=== PATIENT | female | born 1990 | race African-American/Black ===

== ENCOUNTER 2016-11-18 15:17 | Emergency (ER) | payer SELFPAY ==
[~2016-11-18 15:17] MED LIST: AMOX875T PO; FLUT1SPR9 EACH NARE; METO10TA PO; ONDA4TAB7 PO; PANT20 PO; TRAM50 PO; ULTR50TA PO
[2016-11-18 15:20] VITALS: BP 125/78; PULSE 73; RESP 17; TEMP 98.1; O2SAT 99
[2016-11-18 16:58] LABS: BLOOD, URINE MOD (NEG); COMMENT (UR) CULT NOT INDICATED; CULTURE IF INDICATED CULT NOT INDICATED; GLUCOSE,URINE NEG (NEG); KETONE, URINE NEG (NEG); MUCUS URINE FEW /lpf (OCC); NITRITE,URINE NEG (NEG); SQUAMOUS EPITHELIAL CELL URINE 3 /hpf (0-5); URINE COLOR YELLOW (YELLW/STRAW)
[2016-11-18] MEDS ORDERED: SODIUM CHLOR 0.9% 1000 ML INJ 1,000 ML IV SCH (17:21)
[2016-11-18 17:27] VITALS: RESP 16; O2SAT 98
--- NOTE | 2016-11-18 17:28 | PD ---
HPI Chief Complaint: GI Complaint Time Seen by Provider: 17:09 Travel History International Travel<30 days: No Contact w/Intl Traveler<30days: No Traveled to known affect area: No History of Present Illness HPI 26-year-old female complains of abdominal pain with nausea vomiting. Patient states that symptoms started last night. Patient states that she has to with no fever. Patient states that she has sweating. Patient states the abdominal pain is cramping pain diffuse over the abdomen. Patient denies any pain radiation. Patient states that she started her menstruation period last night also. Patient denies any dysuria or frequency. Patient denies any back pain. On a scale from 1-10 the pain is an 8. 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") Social History Alcohol Use: Yes (occasionally) Tobacco Use: Yes Substance Use: No Allergies-Medications (Allergen,Severity, Reaction): Coded Allergies: Oxycodone (Verified Allergy, Severe, Hives, 11/18/16) Reported Meds & Prescriptions Reported Meds & Active Scripts Active Reglan 10 mg (Metoclopramide HCl) 10 Mg Tab 1 Tab PO Q6H Protonix (Pantoprazole Sodium) 20 Mg Tabdr 20 Mg PO DAILY Ultram (Tramadol HCl) 50 Mg Tab 50 Mg PO Q6H PRN FOR PAIN Flonase Allergy Relief (Fluticasone Propionate (Nasal)) 50 Mcg/Act Spr 2 [place] EACH NARE DAILY Trimox 875 Mg Tab (Amoxicillin) 875 Mg Tab 875 Mg PO Q12 Reported Ultram (Tramadol HCl) 50 Mg Tab 50 Mg PO BID PRN Ondansetron Odt (Ondansetron HCl) 4 Mg Tab 4 Mg PO BID Review of Systems General / Constitutional: No: Fever Eyes: No: Visual changes HENT: No: Headaches Cardiovascular: No: Chest Pain or Discomfort Respiratory: No: Shortness of Breath Gastrointestinal: Positive: Nausea, Vomiting, Abdominal Pain Genitourinary: No: Dysuria Musculoskeletal: No: Pain Skin: No Rash Neurologic: No: Weakness Psychiatric: No: Depression Endocrine: No: Polydipsia Hematologic/Lymphatic: No: Easy Bruising Physical Exam Narrative GENERAL: Well-nourished, well-developed patient. SKIN: Warm and dry. HEAD: Normocephalic. EYES: No scleral icterus. No injection or drainage. NECK: Supple, trachea midline. No JVD or lymphadenopathy. CARDIOVASCULAR: Regular rate and rhythm without murmurs, gallops, or rubs. RESPIRATORY: Breath sounds equal bilaterally. No accessory muscle use. GASTROINTESTINAL: Abdomen soft, nondistended. Patient has moderate diffuse tenderness over the abdomen. No rebound tenderness. No mass. MUSCULOSKELETAL: No cyanosis, or edema. BACK: Nontender without obvious deformity. No CVA tenderness. Neurologic exam normal. Data Data Last Documented VS Vital Signs Date Time Temp Pulse Resp B/P Pulse Ox O2 Delivery O2 Flow Rate FiO2 11/18/16 19:17 69 18 123/60 95 Room Air 11/18/16 15:20 98.1 Orders Urinalysis - C+S If Indicated (11/18/16 16:39) Ed Urine Pregnancytest Poc (11/18/16 16:39) Complete Blood Count With Diff (11/18/16 17:21) Comprehensive Metabolic Panel (11/18/16 17:21) Lipase (11/18/16 17:21) Prothrombin Time / Inr (Pt) (11/18/16 17:21) Act Partial Throm Time (Ptt) (11/18/16 17:21) Iv Access Insert/Monitor (11/18/16 17:21) Ecg Monitoring (11/18/16 17:21) Oximetry (11/18/16 17:21) Ondansetron Inj (Zofran Inj) (11/18/16 17:30) Pantoprazole Inj (Protonix Inj) (11/18/16 17:30) Sodium Chlor 0.9% 1000 Ml Inj (Ns 1000 M (11/18/16 17:21) Ketorolac Inj (Toradol Inj) (11/18/16 17:30) Metoclopramide Inj (Reglan Inj) (11/18/16 19:45) Diphenhydramine Inj (Benadryl Inj) (11/18/16 19:45) Labs Laboratory Tests Test 11/18/16 11/18/16 16:42 17:30 Urine Color YELLOW Urine Turbidity CLEAR Urine pH 6.0 Urine Specific [place] 1.023 Urine Protein TRACE mg/dL Urine Glucose (UA) NEG mg/dL Urine Ketones NEG mg/dL Urine Occult Blood MOD Urine Nitrite NEG Urine Bilirubin NEG Urine Urobilinogen 2.0 MG/DL Urine Leukocyte Esterase NEG Urine RBC /hpf Urine WBC 3 /hpf Urine Squamous Epithelial 3 /hpf Cells Urine Mucus FEW /lpf Microscopic Urinalysis Comment CULT NOT INDICATED White Blood Count 5.2 TH/MM3 Red Blood Count 4.46 MIL/MM3 Hemoglobin 11.6 GM/DL Hematocrit 36.8 % Mean Corpuscular Volume 82.6 FL Mean Corpuscular Hemoglobin 26.1 PG Mean Corpuscular Hemoglobin 31.7 % Concent Red Cell Distribution Width 14.3 % Platelet Count 163 TH/MM3 Mean Platelet Volume 8.6 FL Neutrophils (%) (Auto) 64.8 % Lymphocytes (%) (Auto) 28.1 % Monocytes (%) (Auto) 4.3 % Eosinophils (%) (Auto) 0.4 % Basophils (%) (Auto) 2.4 % Neutrophils # (Auto) 3.4 TH/MM3 Lymphocytes # (Auto) 1.5 TH/MM3 Monocytes # (Auto) 0.2 TH/MM3 Eosinophils # (Auto) 0.0 TH/MM3 Basophils # (Auto) 0.1 TH/MM3 CBC Comment DIFF FINAL Differential Comment Sodium Level 138 MEQ/L Potassium Level 5.1 MEQ/L Chloride Level 106 MEQ/L Carbon Dioxide Level 25.3 MEQ/L Anion Gap 7 MEQ/L Blood Urea Nitrogen 7 MG/DL Creatinine 0.91 MG/DL Estimat Glomerular Filtration 90 ML/MIN Rate Random Glucose 75 MG/DL Calcium Level 9.1 MG/DL Total Bilirubin 0.8 MG/DL Aspartate Amino Transf 27 U/L (AST/SGOT) Alanine Aminotransferase 19 U/L (ALT/SGPT) Alkaline Phosphatase 60 U/L Total Protein 8.4 GM/DL Albumin 4.2 GM/DL Lipase 399 U/L [facility] Medical Decision Making Medical Screen Exam Complete: Yes Emergency Medical Condition: Yes Interpretation(s) Urine test negative. 194 PM. CBC within normal limit. CMP within normal limit. Lipase 399. UA is negative. Differential Diagnosis Differential diagnosis including dysmenorrhea, gastritis, PUD, pancreatitis, cholecystitis, colitis, UTI, pyelonephritis, nephrolithiasis, gastroenteritis. Narrative Course 26-year-old female with complains of nausea vomiting abdominal pain. Patient's on her menstruation period now. Normal saline solution 1 L IV bolus. Toradol 30 mg IV. Zofran 4 mg IV. Reglan 10 mg IV. Benadryl 25 mg IV. Reexamination abdominal pain resolved completely. Patient complained of persistent nausea. Diagnosis Primary Impression: Dysmenorrhea Additional Impression: Gastroenteritis Patient Instructions: General Instructions Additional Instructions: Take medication as needed. Follow-up with personal physician. Return if persistent problem or worse. Med/Other Pt SpecificInfo: Prescription(s) given Scripts Tramadol 50 Mg Tab50 Mg PO Q6H PRN (PAIN) #20 TAB Ref 0 Prov:Aguilar Velasquez MD 11/18/16 Promethazine (Phenergan)25 Mg Tab25 Mg PO Q6H PRN (Nausea/Vomiting) #10 TAB Ref 0 Prov:Aguilar Velasquez MD 11/18/16 Ondansetron Odt (Zofran Odt)4 Mg Tab4 Mg SL Q6HR PRN (Nausea/Vomiting) #10 TAB Prov:Aguilar Velasquez MD 11/18/16 Disposition: 01 DISCHARGE HOME Condition: Stable Aguilar Velasquez MD Nov 18, 2016 17:28
[2016-11-18] MEDS ORDERED: PANTOPRAZOLE SODIUM 40 MG VIAL IVP ONE (17:30)
[2016-11-18] MEDS ORDERED: ONDANSETRON HCL 4 MG/2 ML VIAL IVP ONE (17:30)
[2016-11-18] MEDS ORDERED: KETOROLAC TROMETHAMINE 30 MG/ML (IVP) VIAL IVP ONE (17:30)
[2016-11-18 17:51] LABS: AUTOMATED NEUTROPHIL # 3.4 TH/MM3 (1.8-7.7); BASOPHIL # 0.1 TH/MM3 (0-0.2); BASOPHIL % 2.4 % (0.0-2.0); EOSINOPHIL % 0.4 % (0.0-4.0); HEMATOCRIT 36.8 % (35.0-46.0); HEMO FLAGS DIFF FINAL; LYMPH % 28.1 % (9.0-44.0); LYMPHOCYTE # 1.5 TH/MM3 (1.0-4.8); MEAN CELL VOLUME 82.6 FL (80.0-100.0); MEAN CORPUSCULAR HEMOGLOBIN 26.1 PG (27.0-34.0); MEAN CORPUSCULAR HGB CONC 31.7 % (32.0-36.0); MONO % 4.3 % (0.0-8.0); NEUT % 64.8 % (16.0-70.0); PLATELET COUNT 163 TH/MM3 (150-450); RED BLOOD COUNT 4.46 MIL/MM3 (4.00-5.30); RED CELL DISTRIBUTION WIDTH 14.3 % (11.6-17.2); WHITE BLOOD COUNT 5.2 TH/MM3 (4.0-11.0)
[2016-11-18 18:00] VITALS: BP 122/60; PULSE 67; RESP 18; O2SAT 99
[2016-11-18 18:50] LABS: ALKALINE PHOSPHATASE 60 U/L (45-117); ALT (GPT) 19 U/L (10-53); ANION GAP 7 MEQ/L (5-15); AST (GOT) 27 U/L (15-37); BICARBONATE 25.3 MEQ/L (21.0-32.0); BLOOD UREA NITROGEN 7 MG/DL (7-18); CHLORIDE 106 MEQ/L (98-107); GLOMERULAR FILTRATION RATE 90 ML/MIN (>89); SODIUM (NA) 138 MEQ/L (136-145); TOTAL BILIRUBIN ADULT 0.8 MG/DL (0.2-1.0)
[2016-11-18 18:52] LABS: POTASSIUM 5.1 MEQ/L (3.5-5.1)
[2016-11-18 19:17] VITALS: BP 123/60; PULSE 69; RESP 18; O2SAT 95
[2016-11-18] MEDS ORDERED: diphenhydrAMINE HCL 50 MG/ML VIAL IV PUSH ONE (19:45)
[2016-11-18] MEDS ORDERED: METOCLOPRAMIDE HCL 10 MG/2 ML VIAL IV PUSH ONE (19:45)
[2016-11-18] MEDS ORDERED: TRAM50TA PO (19:56)
[2016-11-18] MEDS ORDERED: ZOFR4TAB3 SL (19:56)
[2016-11-18] MEDS ORDERED: PROM25TA5 PO (19:56)
== END 2016-11-18 20:23 | disposition home or self-care (01) ==
LOC: NEPA 15:17
DX: N94.6 Dysmenorrhea, unspecified (principal); K52.9 Noninfective gastroenteritis and colitis, unspecified; Z72.0 Tobacco use
CPT/HCPCS: 80053; 81001; 83690; 84703; 85025; 96360; 96374; 96375; 99284; C9113; J1200; J1885; J2405; J2765; J7030

== ENCOUNTER 2017-04-26 09:11 | Emergency (ER) | payer SELFPAY ==
[~2017-04-26] VITALS: Ht 175.3 cm; Wt 69.0 kg
[~2017-04-26 09:11] MED LIST changes: +PROM25TA5 PO; +TRAM50TA PO; +ZOFR4TAB3 SL
[2017-04-26 09:13] VITALS: BP 120/72; PULSE 71; RESP 12; TEMP 98.7; O2SAT 100
--- NOTE | 2017-04-26 09:34 | PD ---
HPI Chief Complaint: Oral / Dental Pain or Problem Time Seen by Provider: 09:27 Travel History International Travel<30 days: No Contact w/Intl Traveler<30days: No Traveled to known affect area: No History of Present Illness HPI 26-year-old Afro-[place]ian female presents the emergency department with several day history of and swelling in the right upper jaw line into the cheek for the past several days. Patient states some swelling this morning and increasing pain. She denies difficulty swallowing or throat pain. She denies fever, chills, or any other constitutional symptoms. Pain is rated as an 8 out of 10. Patient has no local dentist. She is allergic to oxycodone. 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") Social History Alcohol Use: Yes (occasionally) Tobacco Use: Yes Substance Use: No Allergies-Medications (Allergen,Severity, Reaction): Coded Allergies: Oxycodone (Verified Allergy, Severe, Hives, 04/26/17) Reported Meds & Prescriptions Reported Meds & Active Scripts Active Magic Mouthwash Adult Liq (Multi-Ingredient Mouthwash/Gargle) 120 Ml Susp 5 Ml SWISH-SWAL ACHS Each 5 mL contains: Nystatin 200,000 units, Diphenhydramine 4.25 mg, Viscous Lidocaine 10 mg, Vásquez syrup 0.8 mL Ibuprofen 800 Mg Tab 800 Mg PO Q8H PRN Amoxicillin 875 Mg Tab 875 Mg PO BID Non-Aspirin Pain Relief ES (Acetaminophen) 500 Mg Tab 500 Mg PO Q6HR PRN Trimox 875 Mg Tab (Amoxicillin) 875 Mg Tab 875 Mg PO Q12 Review of Systems Except as stated in HPI: all other systems reviewed are Neg General / Constitutional: No: Fever, Chills Eyes: No: Visual changes HENT: Positive: Dental Difficulties, Earache, No: Headaches, Sore Throat, Rhinitis, Rhinorrhea, Congestion, Neck Stiffness, Neck Pain, Gingival Bleeding Cardiovascular: No: Chest Pain or Discomfort Respiratory: No: Shortness of Breath Gastrointestinal: No: Abdominal Pain Genitourinary: No: Dysuria Musculoskeletal: No: Pain Skin: No Rash Neurologic: No: Weakness Psychiatric: No: Depression Endocrine: No: Polydipsia Hematologic/Lymphatic: No: Easy Bruising Physical Exam Narrative GENERAL: Patient is in mild to moderate distress. SKIN: Warm and dry. Normal color. Normal turgor. No rash. HEAD: Atraumatic. Normocephalic. EYES: Pupils equal and round. No scleral icterus. No injection or drainage. Ocular motions are equal bilaterally without pain. ENT: No nasal bleeding or discharge. Mucous membranes pink and moist. Teeth actually appeared fairly good repair. Patient points to the #4 tooth, which is noted to be tender with palpation. She has localized swelling to the upper gingiva without significant abscess appreciated. TMs are clear bilaterally. NECK: Trachea midline. Supple nontender without significant lymphadenopathy. CARDIOVASCULAR: Regular rate and rhythm. RESPIRATORY: No accessory muscle use. Clear to auscultation. Breath sounds equal bilaterally. MUSCULOSKELETAL: Extremities without clubbing, cyanosis, or edema. No obvious deformities. NEUROLOGICAL: Awake and alert. No obvious cranial nerve deficits. Motor grossly within normal limits. Five out of 5 muscle strength in the arms and legs. Normal speech. PSYCHIATRIC: Appropriate mood and affect; insight and judgment normal. Data Data Last Documented VS Vital Signs Date Time Temp Pulse Resp B/P Pulse Ox O2 Delivery O2 Flow Rate FiO2 04/26/17 09:13 98.7 71 12 120/72 100 MDM Medical Decision Making Medical Screen Exam Complete: Yes Emergency Medical Condition: Yes Differential Diagnosis Dental caries. Dental pain. Dental abscess. Narrative Course Patient is medically stable at time of exam. Patient was offered Toradol but declined. Patient was treated with amoxicillin 875 twice a day 10 days. Patient is given ibuprofen 800 mg 3 times daily with food #30. Patient is given acetaminophen 500 mg 2 tabs every 6 hours when necessary #60. Patient is given Magic mouthwash 5-10 mL's every 2 hours when necessary dental pain. #120 mL's with 1 refill. Dental resource handout is given patient. Patient follow-up if symptoms worsen as discussed. Diagnosis Primary Impression: Dental abscess Referrals: Dentist Patient Instructions: Dental Abscess (ED), General Instructions Departure Forms: Work Release Enter return to work date: Apr 28, 2017 Additional Instructions: Patient was treated with amoxicillin 875 twice a day 10 days. Patient is given ibuprofen 800 mg 3 times daily with food #30. Patient is given acetaminophen 500 mg 2 tabs every 6 hours when necessary #60. Patient is given Magic mouthwash 5-10 mL's every 2 hours when necessary dental pain. #120 mL's with 1 refill. Dental resource handout is given patient. Patient follow-up if symptoms worsen as discussed. Med/Other Pt SpecificInfo: Prescription(s) given Scripts Tbvgmcte-Dqifxmndkuynjif-Jyvhtavxt Liq (Magic Mouthwash Adult Liq)120 Ml Susp5 Ml SWISH-SWAL ACHS #120 ML Ref 1 Each 5 mL contains: Nystatin 200,000 units, Diphenhydramine 4.25 mg, Viscous Lidocaine 10 mg, Vásquez syrup 0.8 mL Prov:Ezio Galaviz MD 04/26/17 Ibuprofen 800 Mg [id number] Mg PO Q8H PRN (Pain/Inflammation) #30 TAB Prov:Ezio Galaviz MD 04/26/17 Amoxicillin 875 Mg [id number] Mg PO BID #20 TAB Prov:Ezio Galaviz MD 04/26/17 Acetaminophen (Non-Aspirin Pain Relief ES)500 Mg [id number] Mg PO Q6HR PRN (PAIN) # 60 TAB Prov:Ezio Galaviz MD 04/26/17 Disposition: 01 DISCHARGE HOME Condition: Stable Corky Mancilla Apr 26, 2017 09:34
[2017-04-26] MEDS ORDERED: AMOX875T PO (09:37)
[2017-04-26] MEDS ORDERED: IBUP800T23 PO (09:37)
[2017-04-26] MEDS ORDERED: MAGICADU2 SWISH-SWAL (09:37)
[2017-04-26] MEDS ORDERED: NON-500T13 PO (09:37)
== END 2017-04-26 10:36 | disposition home or self-care (01) ==
LOC: NEPK 09:11
DX: K04.7 Periapical abscess without sinus (principal); Z72.0 Tobacco use
CPT/HCPCS: 99284

== ENCOUNTER 2017-07-02 13:11 | Emergency (ER) | payer SELFPAY ==
[~2017-07-02 13:11] MED LIST changes: -FLUT1SPR9 EACH NARE; +IBUP800T23 PO; +MAGICADU2 SWISH-SWAL; -METO10TA PO; +NON-500T13 PO; -ONDA4TAB7 PO; -PANT20 PO; -PROM25TA5 PO; -TRAM50 PO; -TRAM50TA PO; -ULTR50TA PO; -ZOFR4TAB3 SL
[2017-07-02 13:14] VITALS: BP 136/62; PULSE 91; RESP 16; TEMP 98.1; O2SAT 100
[2017-07-02] MEDS ORDERED: BACT800T5 PO (13:40)
[2017-07-02] MEDS ORDERED: TYLETAB34 PO (13:40)
[2017-07-02] MEDS ORDERED: CLIN1CAP5 PO (13:40)
--- NOTE | 2017-07-02 13:43 | PD ---
HPI Chief Complaint: Skin Problem Time Seen by Provider: 13:22 Travel History International Travel<30 days: No Contact w/Intl Traveler<30days: No Traveled to known affect area: No History of Present Illness HPI The patient was seen and examined in the presence of the nurse. This patient complains of painful genital lesion. Duration 2 days. Severity is moderate. No fever or active drainage. 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") Social History Alcohol Use: Yes (occasionally) Tobacco Use: Yes Substance Use: No Allergies-Medications (Allergen,Severity, Reaction): Coded Allergies: oxycodone (Unverified Allergy, Severe, Hives, 06/19/17) Reported Meds & Prescriptions Reported Meds & Active Scripts Active Clindamycin (Clindamycin HCl) 150 Mg Cap 300 Mg PO Q8HR Bactrim DS (Sulfamethoxazole-Trimethoprim) 800-160 Mg Tab 1 Tab PO BID Tylenol-Codeine #3 (Acetaminophen-Codeine) 300-30 mg Tab 1 Tab PO Q4H PRN Magic Mouthwash Adult Liq (Multi-Ingredient Mouthwash/Gargle) 120 Ml Susp 5 Ml SWISH-SWAL ACHS Each 5 mL contains: Nystatin 200,000 units, Diphenhydramine 4.25 mg, Viscous Lidocaine 10 mg, Vásquez syrup 0.8 mL Ibuprofen 800 Mg Tab 800 Mg PO Q8H PRN Amoxicillin 875 Mg Tab 875 Mg PO BID Non-Aspirin Pain Relief ES (Acetaminophen) 500 Mg Tab 500 Mg PO Q6HR PRN Trimox 875 Mg Tab (Amoxicillin) 875 Mg Tab 875 Mg PO Q12 Review of Systems General / Constitutional: No: Fever HENT: No: Headaches Cardiovascular: No: Chest Pain or Discomfort Physical Exam Narrative GASTROINTESTINAL: Abdomen soft, non-tender, nondistended. Positive bowel sounds. No hepato-splenomegaly, or palpable masses. No guarding. Psych: Normal mood and affect. Normal insight and judgment. : She has some tenderness and swelling and a bit of induration in the left lower labia. There is no fluctuance or drainage. It looks like an early Bartholin's cyst infection Data Data Last Documented VS Vital Signs Date Time Temp Pulse Resp B/P (MAP) Pulse Ox O2 Delivery O2 Flow Rate FiO2 07/02/17 13:14 98.1 91 16 136/62 (86) 100 MDM Medical Decision Making Medical Screen Exam Complete: Yes Emergency Medical Condition: Yes Medical Record Reviewed: Yes Differential Diagnosis Bartholin's cyst infection, vaginitis, cellulitis Narrative Course I have reviewed the patient's electronic medical record. Patient has an early Bartholin's cyst infection of the left lower labia. However I don't feel it's amenable to incision and drainage at this time. There is no fluctuance. I advised her on warm compresses and wrote her something for pain as well as Bactrim and clindamycin Advised her to diligently do the antibiotics for 48 hours and if she has no improvement or worsens to return for recheck Diagnosis Primary Impression: Infected cyst of Bartholin's gland duct Additional Instructions: The patient was advised to follow up with their physician and return if they worsen. The patient was warned about potential sedation for the medications they will receive on prescription. Use warm compresses Med/Other Pt SpecificInfo: Prescription(s) given Scripts Clindamycin (Clindamycin) 150 Mg Cap 300 MG PO Q8HR for Infection, #42 CAP 0 Refills Prov: Arron Anna MD 07/02/17 Sulfamethoxazole-Trimethoprim (Bactrim DS) 800-160 Mg Tab 1 TAB PO BID for Infection, #14 TAB 0 Refills Prov: Arron Anna MD 07/02/17 Acetaminophen-Codeine (Tylenol-Codeine #3) 300-30 mg Tab 1 TAB PO Q4H Y for PAIN, #20 TAB 0 Refills Prov: Arron Anna MD 07/02/17 Disposition: 01 DISCHARGE HOME Condition: Stable Arron Anna MD Jul 02, 2017 13:43
== END 2017-07-02 14:27 | disposition home or self-care (01) ==
LOC: NEPD 13:11
DX: N75.0 Cyst of Bartholin's gland (principal); Z72.0 Tobacco use
CPT/HCPCS: 99284

== ENCOUNTER 2017-12-15 02:08 | Emergency (ER) | payer SELFPAY ==
[~2017-12-15] VITALS: Ht 175.3 cm; Wt 63.6 kg
[~2017-12-15 02:08] MED LIST changes: +BACT800T5 PO; +CLIN150C14 PO; +IBUP1TAB7 PO; -IBUP800T23 PO; +TYLETAB34 PO
[2017-12-15 02:10] VITALS: BP 110/77; PULSE 140; RESP 20; TEMP 101; O2SAT 99
[2017-12-15 02:24] VITALS: BP 133/65; PULSE 124; RESP 20; TEMP 102.9; O2SAT 100
[2017-12-15 03:05] VITALS: BP 133/65; PULSE 115; RESP 18; O2SAT 100
--- NOTE | 2017-12-15 04:05 | PD ---
HPI Chief Complaint: Cold / Flu Symptoms Time Seen by Provider: 02:19 Travel History International Travel<30 days: No Contact w/Intl Traveler<30days: No Traveled to known affect area: No History of Present Illness HPI Patient is a 27-year-old female who is having fever chills for over 2 weeks her partner is giving her Tamiflu and there are 6 children the house and they'll tested positive for flu and have been taking Tamiflu patient in the ER complaining of bodyaches weakness fever and chills denies sore throat but has multiple sick contacts with patients who all have had the flu and a been taking Tamiflu she was given a few doses of Tamiflu but still has the symptoms she tested her swab is negative here in the ER possibly negative because she took Tamiflu PFSH Past Medical History Diminished Hearing: No Reproductive: Yes (ENDOMETRIOSIS) Immunizations Current: No Tetanus Vaccination: Unknown Influenza Vaccination: No ?: Not LMP: currently Past Surgical History Abdominal Surgery: Yes Other Surgery: Yes (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") Social History Alcohol Use: Yes (occ.) Tobacco Use: Yes Substance Use: No Allergies-Medications (Allergen,Severity, Reaction): Coded Allergies: oxycodone (Unverified Allergy, Severe, Hives, 12/15/17) Reported Meds & Prescriptions Reported Meds & Active Scripts Active Ibuprofen 600 Mg Tab 600 Mg PO Q6H PRN Pseudoephedrine (Pseudoephedrine HCl) 60 Mg Tab 60 Mg PO Q6H PRN Diphenhydramine (Diphenhydramine HCl) 25 Mg Cap 25 Mg PO Q12H PRN Guaifenesin AC Liq (Guaifenesin-Codeine Liq) 100-10 Mg/5 Ml Syrp 10 Ml PO Q6H PRN Tamiflu (Oseltamivir Phosphate) 75 Mg Cap 75 Mg PO DAILY Review of Systems Except as stated in HPI: all other systems reviewed are Neg General / Constitutional: Positive: Fever, Chills Gastrointestinal: Positive: Diarrhea Musculoskeletal: Positive: Myalgias Physical Exam Narrative GENERAL: NON TOXIC APPEARING BUT SEEMS UNCOMFORTABLE SKIN: Warm and dry. HEAD: Atraumatic. Normocephalic. EYES: Pupils equal and round. No scleral icterus. No injection or drainage. ENT: No nasal bleeding or discharge. Mucous membranes pink and moist. NECK: Trachea midline. No JVD. CARDIOVASCULAR: Regular rate and rhythm. RESPIRATORY: No accessory muscle use. Clear to auscultation. Breath sounds equal bilaterally. GASTROINTESTINAL: Abdomen soft, non-tender, nondistended. Hepatic and splenic margins not palpable. MUSCULOSKELETAL: Extremities without clubbing, cyanosis, or edema. No obvious deformities. NEUROLOGICAL: Awake and alert. No obvious cranial nerve deficits. Motor grossly within normal limits. Five out of 5 muscle strength in the arms and legs. Normal speech. PSYCHIATRIC: Appropriate mood and affect; insight and judgment normal. Data Data Last Documented VS Vital Signs Date Time Temp Pulse Resp B/P (MAP) Pulse Ox O2 Delivery O2 Flow Rate FiO2 12/15/17 04:48 12/15/17 03:05 115 18 100 12/15/17 02:24 102.9 Room Air Orders Orders Influenzae A/B Antigen (12/15/17 02:19) Acetaminophen (Tylenol) (12/15/17 04:15) Diphenhydramine Liq (Benadryl Liq) (12/15/17 04:15) Pseudoephedrine (Sudafed) (12/15/17 04:15) Guaifen-Cod 200-20 Mg/10ml Liq (Robituss (12/15/17 04:15) Oseltamivir (Tamiflu) (12/15/17 09:00) Group A Rapid Strep Screen (12/15/17 04:03) Strep Culture (Group A) (12/15/17 02:20) Ed Discharge Order (12/15/17 04:47) MDM Medical Decision Making Medical Screen Exam Complete: Yes Emergency Medical Condition: Yes Differential Diagnosis viral illness vs flu vs strep vs URI viral , rhino virus coroanal virus other casue of Resp fever syndome Narrative Course Flu swab negative but her entire household has Flu and she has classic symptoms. Will treat tamiflu plus symptomatic relief meds Diagnosis Primary Impression: Viral illness Additional Impression: Flu-like symptoms Patient Instructions: General Instructions Scripts Ibuprofen (Ibuprofen) 600 Mg Tab 600 MG PO Q6H Y for Pain/Inflammation, #40 TAB 0 Refills Prov: Sudhir Allen MD 12/15/17 Pseudoephedrine (Pseudoephedrine) 60 Mg Tab 60 MG PO Q6H Y for NASAL CONGESTION, #10 TAB 0 Refills Prov: Sudhir Allen MD 12/15/17 Diphenhydramine (Diphenhydramine) 25 Mg Cap 25 MG PO Q12H Y for ALLERGIES, #10 CAP 0 Refills Prov: Sudhir Allen MD 12/15/17 Guaifenesin-Codeine Liq (Guaifenesin AC Liq) 100-10 Mg/5 Ml Syrp 10 ML PO Q6H Y for COUGH, #1 BOTTLE 0 Refills Prov: Sudhir Allen MD 12/15/17 Oseltamivir (Tamiflu) 75 Mg Cap 75 MG PO DAILY for Mgmt Viral Infection, #10 CAP 0 Refills Prov: Sudhir Allen MD 12/15/17 Sudhir Allen MD Dec 15, 2017 04:05
[2017-12-15] MEDS ORDERED: diphenhydrAMINE HCL ELIXIR 12.5 MG/5 ML CUP PO ONE (04:15)
[2017-12-15] MEDS ORDERED: ACETAMINOPHEN 325 MG TAB PO ONE (04:15)
[2017-12-15] MEDS ORDERED: guaiFENesin/CODEINE SYRUP 200 MG/20 MG/10 ML CUP PO ONE (04:15)
[2017-12-15] MEDS ORDERED: PSEUDOEPHEDRINE HCL 30 MG TAB PO ONE (04:15)
[2017-12-15] MEDS ORDERED: OSEL75 PO (04:33)
[2017-12-15] MEDS ORDERED: GUAISYP4 PO (04:33)
[2017-12-15] MEDS ORDERED: DIPH25CA PO (04:34)
[2017-12-15] MEDS ORDERED: SUDO60TA2 PO (04:35)
[2017-12-15] MEDS ORDERED: IBUP-232 PO (04:35)
[2017-12-15] MEDS ORDERED: OSELTAMIVIR PHOSPHATE 75 MG CAP PO SCH (09:00)
== END 2017-12-15 04:50 | disposition home or self-care (01) ==
LOC: NEPE 02:08
DX: B34.9 Viral infection, unspecified (principal); J11.1 Influenza due to unidentified influenza virus with other respiratory manifestations; R53.1 Weakness; Z72.0 Tobacco use
CPT/HCPCS: 87081; 87804; 87880; 99283